=== PATIENT | male | born 1975 | race Caucasian/White ===

== ENCOUNTER 2022-11-26 10:12 | Outpatient (OUT) | payer OTHER, SELFPAY ==
--- NOTE | 2022-11-26 10:20 | XR_ITS ---
The [address] [address] Patient Name: ROBIN DE ANDA MRN: [id number] date: 1975 Sex: M Assigned Patient Location: RAD Current Patient Location: RAD Accession/Order Number: [id number] Exam Date: 11/26/2022 10:25 Report Date: 11/26/2022 11:05 At the request of: YU ALVAREZ Procedure: XR knee LT 4V EXAM: XR knee LT 4V HISTORY: Left Knee Contusion , Left Knee Sprain COMPARISON: None. TECHNIQUE: 4 views FINDINGS: No acute fracture or dislocation. No significant degenerative changes. Unremarkable soft tissues. XR/XR knee LT 4V IMPRESSION: Unremarkable exam. Electronically authenticated by: WES SEVERINO Date: 11/26/2022 11:05
== END 2022-11-26 10:13 | disposition home or self-care (01) ==
PROVIDERS: Visit Provider Nurse Practitioner Family
DX: S80.02XA Contusion of left knee, initial encounter (principal); S83.92XA Sprain of unspecified site of left knee, initial encounter
CPT/HCPCS: 73564

== ENCOUNTER 2024-03-21 07:04 | Day surgery (SDC) | payer OTHER, SELFPAY ==
[2024-03-21 07:08] VITALS: BP 138/95; PULSE 82; TEMP 36.3; O2SAT 96
[2024-03-21] MEDS: LIDOCAINE 2% JELLY 10 ML UR (08:07)
[2024-03-21 08:09] VITALS: BP 112/63; BP 152/87; PULSE 71; PULSE 77; O2SAT 96; O2SAT 97
--- NOTE | 2024-03-21 08:15 | PM.URSON ---
Urology Surgery Operative Note Operative Note Procedure Date: 03/21/24 Time Out Performed: yes Pre-op Diagnosis: BPH with LUTS Post-op Diagnosis: same as pre-op Procedures performed: 1. Cystoscopy. Anesthesia: local Primary Surgeon: Todd Hardwick Complications: None Estimated blood loss (mL): 0 Findings: Bilobar obstruction of the prostate. Moderate to severe trabeculation. Specimens: None Drains: None Indications for Procedures: This gentleman has BPH with LUTS for which he takes maximal meds. He has a decent stream but he still has urgency and suprapubic pressure prior to voiding. He now presents for cystoscopy. He has signed an informed consent. Detailed description of Procedure: The patient was kept on the gurney bed and brought into the endoscopy suite. He was in the supine position. Timeout was done by all parties in the room. Genitalia were sterilely prepped and draped in the usual fashion. 2% lidocaine was passed per urethra. A flexible cystoscope was passed per urethra and into the bladder. The anterior urethra revealed no evidence of stricture disease. The prostatic urethra showed by lobar obstruction. Careful panendoscopy in the bladder revealed no evidence of any bladder tumors, stones or foreign bodies. There were no bladder lesions noted. There was thick trabeculation with small diverticuli formation. The scope was retroverted upon itself and no new findings were noted. The scope was then removed. He was then discharged to home. Plan: He will continue his current medications and we will add Myrbetriq 50 mg daily. Follow-up will be in 4 months for reevaluation.
== END 2024-03-21 08:24 | disposition home or self-care (01) ==
PROVIDERS: Visit Provider Urology
PROC: (CPT 52000; principal; 2024-03-21 08:00)
DX: N40.3 Nodular prostate with lower urinary tract symptoms (principal); R39.14 Feeling of incomplete bladder emptying; N50.819 Testicular pain, unspecified; N41.9 Inflammatory disease of prostate, unspecified; N32.89 Other specified disorders of bladder; Z87.891 Personal history of nicotine dependence
CPT/HCPCS: 52000